=== PATIENT | female | born 2000 | race Caucasian/White ===

== ENCOUNTER 2023-12-25 23:40 | Emergency (ER) | payer OTHER ==
[~2023-12-25] VITALS: Ht 154.9 cm; Wt 49.9 kg
[2023-12-26 00:40] VITALS: BP 110/69; PULSE 105; RESP 18; TEMP 101.4; O2SAT 100
[2023-12-26] MEDS: ACETAMINOPHEN 325 MG TAB PO ONE (01:06)
[2023-12-26 02:23] LABS: FLU A ANTIGEN negative (NEGATIVE); FLU B ANTIGEN NEGATIVE (NEGATIVE)
[2023-12-26 04:49] VITALS: BP 110/69; PULSE 105; RESP 18; TEMP 101.4; O2SAT 100
== END 2023-12-26 04:48 | disposition left against medical advice (07) ==
LOC: MED 23:40
DX: M79.10 Myalgia, unspecified site (principal); Z20.822 Contact with and (suspected) exposure to COVID-19; Z53.21 Procedure and treatment not carried out due to patient leaving prior to being seen by health care provider